=== PATIENT | male | born 1950 | race Caucasian/White ===

== ENCOUNTER 2017-11-03 12:49 | Emergency (ER) | payer OTHER ==
[~2017-11-03] VITALS: Ht 180.3 cm; Wt 72.5 kg
[2017-11-03 13:41] LABS: BASOPHIL (%) 0.4 % (0-1); EOSINOPHIL (%) 0.3 % (0-5); HEMATOCRIT 40.8 % (38.0-50.0); IMMATURE GRANULOCYTE (%) 0.4 % (0.0-0.7); MCH 31.8 PG (29.0-34.0); MCHC 34.3 G/DL (30.0-36.0); MCV 92.7 FL (86-99); MONOCYTE (%) 7.1 % (3-12); MONOCYTE COUNT 0.7 K/uL (0-0.8); NEUTROPHIL (%) 81.8 % (45-76); NEUTROPHIL COUNT 8.2 K/uL (1.8-6.4); PLATELET COUNT 279 K/uL (156-360)
[2017-11-03 13:51] LABS: CHLORIDE 107 mEq/L (99-109); POTASSIUM 4.3 mEq/L (3.7-5.4); SODIUM 137 mEq/L (136-147)
[2017-11-03 13:52] LABS: GLUCOSE 79 mg/dL (70-99)
[2017-11-03 13:56] LABS: CREATININE 1.4 mg/dL (0.6-1.3); GFR ESTIMATE (CALCULATED) 54 mL/min/ (58.99-99999); SERUM ETHYL ALCOHOL < 10 mg/dL
[2017-11-03 13:57] LABS: UREA NITROGEN (BUN) 21 mg/dL (9-23)
[2017-11-03 15:00] VITALS: BP 134/85
== END 2017-11-03 15:08 | disposition home or self-care (01) ==
LOC: EME 12:49
PROVIDERS: Emergency Medicine
DX: F41.1 Generalized anxiety disorder (principal); R44.1 Visual hallucinations; E86.0 Dehydration; Z04.6 Encounter for general psychiatric examination, requested by authority; J44.9 Chronic obstructive pulmonary disease, unspecified; E78.5 Hyperlipidemia, unspecified; F17.200 Nicotine dependence, unspecified, uncomplicated; Z95.9 Presence of cardiac and vascular implant and graft, unspecified
CPT/HCPCS: 80048; 81003; 85025; 90837; 99281; 99284; G0480